=== PATIENT | female | born 1955 | race Caucasian/White ===

== ENCOUNTER 2022-03-31 10:00 | Day surgery (SDC) | payer OTHER, MEDICARE ==
[~2022-03-31] VITALS: Ht 160 cm; Wt 82.2 kg
[~2022-03-31 10:00] MED LIST: AMLO5 PO; ATOR10 PO
--- NOTE | 2022-03-31 11:43 | NUR ---
Ambulatory in [facility] warming gown applied. History, Chart, Medications and Allergies reviewed before start of procedure.Lungs clear T/O to Auscultation. Patient confirms NPO status and agrees with scheduled surgery. Patient States Post-Procedure ride home has been arranged. Patient reports completing Chlorhexadine shower X2 prior to admission to hospital.
--- NOTE | 2022-03-31 11:54 | NUR ---
REPORT FROM MAHENDRA GUTIERREZ RN. PT RESTING COMFORTABLY IN BED. DR. BLAKE AT BEDSIDE REMOVED HARD SUPPORT AND MANISH BANDAGE WRAP FROM LEFT ARM WITH INSTRUCTIONS TO CLEAN WITH CHLOROHEXADINE WIPES PREOPERATIVELY. PT'S EXPOSED WRIST IS CLOSED WITH SWOLLEN TISSUE AND BRUISING TO L WRIST. PAINFUL WHEN MOVED. PILLOW PROVIDED FOR SUPPORT, PT REPORTS FINDING RELIEF AFTERWARDS.
--- NOTE | 2022-03-31 14:34 | NUR ---
PT STATES SHE CAN TAKE PERCOCET WITH OUT PROBLEM
--- NOTE | 2022-03-31 15:55 | NUR ---
Patient up to Ambulate independently. Gait steady. Discharge instructions reviewed with patient. Patient verbalizes understanding. Copy given to patient to take home. Patient States Post-Procedure ride home has been arranged. Discharged via wheelchair to private car for ride home. PT TOLERATING PO. REPORTS PAIN DOING MUCH BETTER AND REPORTS READY TO GO HOME. SPLINT C/D/I. WIGGLES FINGERS. CIRC CHECK WNL.
== END 2022-03-31 23:17 | disposition home or self-care (01) ==
LOC: ORSCMMR 10:00
PROVIDERS: Orthopaedic Surgery
PROC: 0PSJ04Z Reposition Left Radius with Internal Fixation Device, Open Approach (ICD-10-PCS; principal; 2022-03-31 12:00)
DX: S52.502A Unspecified fracture of the lower end of left radius, initial encounter for closed fracture (principal); W01.0XXA Fall on same level from slipping, tripping and stumbling without subsequent striking against object, initial encounter; I10 Essential (primary) hypertension; E78.5 Hyperlipidemia, unspecified; K21.9 Gastro-esophageal reflux disease without esophagitis; Z87.891 Personal history of nicotine dependence; E66.9 Obesity, unspecified; Z68.32 Body mass index [BMI] 32.0-32.9, adult
CPT/HCPCS: A9270; C1713; J0171; J0690; J1100; J1885; J2250; J2405; J2704; J3010; J7120

== ENCOUNTER 2022-08-29 06:45 | Day surgery (SDC) | payer OTHER ==
[~2022-08-29] VITALS: Ht 160 cm; Wt 78.3 kg
[2022-08-29] MEDS ORDERED: Cyclobenzaprine5 MG (07:27)
[2022-08-29] MEDS ORDERED: CALCIUM CIT 311 EAC7 (07:28)
[2022-08-29] MEDS ORDERED: ROSU5 (07:28)
[2022-08-29] MEDS ORDERED: VITAMIN D310 MC4 (07:29)
[2022-08-29] MEDS ORDERED: CALCIUM CARBON500 M1 (07:29)
[2022-08-29 10:08] VITALS: BP 110/72
== END 2022-08-29 09:55 | disposition home or self-care (01) ==
LOC: ORSCSDS 06:45
PROVIDERS: Internal Medicine Gastroenterology
PROC: 0DBP8ZX Excision of Rectum, Via Natural or Artificial Opening Endoscopic, Diagnostic (ICD-10-PCS; principal; 2022-08-29 08:45)
DX: Z12.11 Encounter for screening for malignant neoplasm of colon (principal); Z86.010 Personal history of colon polyps; Z83.71 Family history of colonic polyps; K62.1 Rectal polyp; K57.30 Diverticulosis of large intestine without perforation or abscess without bleeding; I10 Essential (primary) hypertension; M85.80 Other specified disorders of bone density and structure, unspecified site; E78.5 Hyperlipidemia, unspecified; Z86.19 Personal history of other infectious and parasitic diseases; Z87.891 Personal history of nicotine dependence; Z79.899 Other long term (current) drug therapy
CPT/HCPCS: 88305; J2704; J7120

== ENCOUNTER 2024-03-24 09:28 | Day surgery (SDC) | payer OTHER ==
[2024-03-24] VITALS (16 sets, daily range): BP systolic 91–126; BP diastolic 49–78
[~2024-03-24] VITALS: Ht 160 cm; Wt 84.5 kg
[~2024-03-24 09:28] MED LIST changes: +Acetaminophen 500 MG Tab PO SCH; +CALCIUM CARBON500 M1 PO; +CALCIUM CIT 311 EAC7; +CeFAZolin Sodium 2,000 MG in NS 100 ML IV SCH; +Chlorhexidine Mouth Care 15 ML UDC MT SCH; +Cyclobenzaprine5 MG PO; +Lactated Ringer's 1,000 ML IV SCH; +OxyCODONE HCL 10 MG TABCR PO SCH; +Preservision S1 EACH PO; +ROSU5; +Ropivacaine 0.5% HCl/Pf 123.125 MG,EPINEPHrine HCL 0.25 MG,Ketorolac Tromethamine 15 MG... INFIL SCH; +Tranexamic Acid 1,000 MG in NS 100 ML IV SCH; +VITAMIN D310 MC4 PO
[2024-03-24] MEDS ORDERED: CeFAZolin Sodium 2,000 MG VIAL ONE (09:45)
[2024-03-24] MEDS ORDERED: propofoL 20 ML IV ONE (09:46)
[2024-03-24] MEDS ORDERED: Midazolam HCl 1MG / ML 2ML Vial ONE (10:07)
[2024-03-24] MEDS ORDERED: Midazolam HCl 1MG / ML 2ML Vial IV ONE (10:10)
[2024-03-24] MEDS ORDERED: propofoL 100 ML IV ONE (10:12)
--- NOTE | 2024-03-24 10:18 | NUR ---
Ambulatory in Day Surgery WITH STEADY GAIT. History, Chart, Medications and Allergies reviewed before start of procedure. Pre-Op teaching done. Pt verbalizes understanding. SONS INFORMATION TAKEN FOR RIDE HOME. BELONGINS PLACED UNDER GURN IN PT BELONGING BAG. GLASSES REMOVED AND PLACED IN PACU WITH PT STICKER ATTACHED.
[2024-03-24] MEDS ORDERED: ePHEDrine Sulfate 50 MG/ML 1ML Injection ONE (10:45)
[2024-03-24] MEDS ORDERED: Dexamethasone Sod Phos 10 MG/ML 1ML VIAL ONE (11:01)
[2024-03-24] MEDS ORDERED: Ondansetron HCl 2 MG / ML 2ML Vial ONE (11:01)
[2024-03-24] MEDS ORDERED: Ketorolac Tromethamine 30mg Vial ONE (11:02)
[2024-03-24] MEDS ORDERED: Ondansetron HCl 2 MG / ML 2ML Vial IV PRN (14:15)
[2024-03-24] MEDS ORDERED: OxyCODONE HCL 5 MG TAB PO PRN (14:15)
[2024-03-24] MEDS ORDERED: Cyclobenzaprine HCl 10 MG Tab PO PRN (15:45)
[2024-03-24] MEDS ORDERED: Metoclopramide HCl 5MG / ML 2ML Vial IV PRN (15:50)
[2024-03-24] MEDS ORDERED: DiphenhydrAMINE HCL 25 MG Cap PO PRN (15:50)
[2024-03-24] MEDS ORDERED: FLU VACC TS2024-25(6MOS UP)/PF 45 MCG/0.5 ML SYRINGE IM SCH (15:55)
[2024-03-24] MEDS ORDERED: Lactated Ringer's 1,000 ML IV SCH (15:55)
[2024-03-24] MEDS ORDERED: Magnesium Hydroxide Conc 10 ML UDC PO PRN (15:55)
[2024-03-24] MEDS ORDERED: Bisacodyl 10 MG Supp PR PRN (15:55)
[2024-03-24] MEDS ORDERED: Promethazine HCl 25 MG Tab PO PRN (15:55)
[2024-03-24] MEDS ORDERED: Acetaminophen 500 MG Tab PO SCH (16:00)
[2024-03-24] MEDS ORDERED: HYDROmorphone HCl/Pf 1MG SYR IV PRN (16:00)
[2024-03-24] MEDS ORDERED: CeFAZolin Sodium 2,000 MG in NS 100 ML IV SCH (18:00)
[2024-03-24] MEDS ORDERED: Ketorolac Tromethamine 15mg Vial IV SCH (18:00)
--- NOTE | 2024-03-24 18:29 | NUR ---
SUMMARY PT HYPOTENSIVE SINCE ARRIVING TO UNIT. FLUIDS INFUSING PER ORDERS. PT ASYMPTOMATIC. WORKED WITH THERAPY. SITTING UP IN RECLINER. PAIN MANAGED PER EMAR ORDERS. TOLERATING PO INTAKE. VOIDED. AQUACEL TO RLE CDI. POLAR PACK IN PLACE. CALL LIGHT IN REACH.
[2024-03-24] MEDS ORDERED: Docusate Sodium 100 MG Cap PO SCH (21:00)
[2024-03-24] MEDS ORDERED: AmLODIPine Besylate 5 MG Tab PO SCH (21:00)
--- NOTE | 2024-03-25 03:53 | NUR ---
SHIFT SUMMARY POD 1 R TKA. NO ACUTE CHANGES OVERNIGHT. VSS. TOLERATING ORALS. AQUACEL C/D/I. PT REPORTS PAIN TOLERABLE, MEDICATED PER EMAR c POLAR PACK IN USE. AMBULATES USING FWW c GB & SBA. VOIDING. ANTICIPATED D/C LATER TODAY. RESTING IN CHAIR. CALL LIGHT IN REACH, WILL REPORT TO DAY RN.
[2024-03-25 04:35] VITALS: BP 99/56
[2024-03-25 04:41] LABS: BASOPHILS ABSOLUTE AUTO 0.01 K/mm3 (0.00-0.23); BASOPHILS PERCENT AUTO 0 % (0-2); EOSINOPHILS PERCENT AUTO 0 % (0-6); Hematocrit 36.7 % (33.0-51.0); Hemoglobin 12.3 g/dL (11.5-16.0); IMMATURE GRAN ABSOLUTE AUTO 0.09 K/mm3 (0.00-0.10); IMMATURE GRAN PERCENT AUTO 1 % (0-1); LYMPHOCYTES ABSOLUTE AUTO 1.16 K/mm3 (0.84-5.20); LYMPHOCYTES PERCENT AUTO 7 % (21-46); MONOCYTES ABSOLUTE AUTO 0.73 K/mm3 (0.16-1.47); MONOCYTES PERCENT AUTO 5 % (4-13); Mean Corpuscular HGB 30.4 pg (26.0-34.0); Mean Corpuscular HGB Conc 33.5 g/dL (31.5-36.5); Mean Corpuscular Volume 91 fL (80-100); Mean Platelet Volume 9.7 fL (9.1-12.4); NEUTROPHILS ABSOLUTE AUTO 13.83 K/mm3 (1.96-9.15); NEUTROPHILS PERCENT AUTO 87 % (41-73); Platelet Count 296 K/mm3 (150-400); RDW Coefficient Variation 13.2 % (11.7-14.2); RDW Standard Deviation 44.3 fL (35.1-46.3); Red Blood Cell Count 4.05 M/mm3 (3.80-5.20); White Blood Cell Count 15.82 K/mm3 (4.00-11.30)
[2024-03-25 05:02] LABS: Bun/Creatinine Ratio 18.5 (12.0-20.0); Calcium, Blood 8.8 mg/dL (8.5-10.1); Creatinine, Blood 0.76 mg/dL (0.40-1.00); Magnesium, Blood 2.3 mg/dL (1.6-2.4); Potassium, Blood 4.6 mmol/L (3.5-5.5)
[2024-03-25 07:03] VITALS: BP 97/61
[2024-03-25] MEDS ORDERED: ACET500 PO (07:56)
[2024-03-25] MEDS ORDERED: ASPI81CH PO (07:56)
[2024-03-25] MEDS ORDERED: OXYC5 PO (07:56)
[2024-03-25] MEDS ORDERED: Aspirin 81 MG Chew PO SCH (09:00)
[2024-03-25] MEDS ORDERED: Cholecalciferol 400 unit Tab PO SCH (09:00)
[2024-03-25 10:51] VITALS: BP 126/81
--- NOTE | 2024-03-25 10:56 | NUR ---
discharging PT CLEARED THERAPY. CALLED RIDE, WAITING FOR ARRIVAL. REVIEWED DC INSTRUCTIONS W/PT; VERBALIZED UNDERSTANDING. PROVIDED AQUACEL DRESSINGS. VSS. DC'D IV, CATHETER INTACT.
--- NOTE | 2024-03-25 11:20 | NUR ---
DISCHARGED PT LEFT UNIT IN WC W/POSSESSIONS, DC PAPERWORK, AQUACEL DRESSINGS, AND POLAR PACK IN HAND TO MEET RIDE WAITING AT PATIENT ENTRANCE.
== END 2024-03-25 11:20 | disposition home or self-care (01) ==
LOC: ORSCMMR 09:28 → ORD 10:15 → ORSCMMR 12:45 → SURS 13:36 → ORSCMMR 23:00 → SURS 23:00 → ORSCMMR 03-25 11:20
PROVIDERS: Orthopaedic Surgery
PROC: 0SRC0JA Replacement of Right Knee Joint with Synthetic Substitute, Uncemented, Open Approach (ICD-10-PCS; principal; 2024-03-24 11:30)
DX: M17.11 Unilateral primary osteoarthritis, right knee (principal); I10 Essential (primary) hypertension; E78.5 Hyperlipidemia, unspecified; E66.9 Obesity, unspecified; Z68.33 Body mass index [BMI] 33.0-33.9, adult; Z79.899 Other long term (current) drug therapy; Z87.891 Personal history of nicotine dependence
CPT/HCPCS: 36415; 73560-RT; 80048; 83735; 85025; 97110; 97116; 97161; 97530; A9270; C1713; C1776; C1887; J0171; J0690; J0735; J1100; J1885; J2250; J2405; J2704; J2795; J7120